=== PATIENT | male | born 1985 | race Caucasian/White ===

== ENCOUNTER → 2022-01-17 | Day surgery (SDC) | payer OTHER ==
[2022-01-17 12:33] VITALS: BP 119/73
== END | disposition home or self-care (01) ==
LOC: SURG 12:26
PROVIDERS: ATTEND Anesthesiology
DX: M47.816 Spondylosis without myelopathy or radiculopathy, lumbar region (principal); M51.36 Other intervertebral disc degeneration, lumbar region; Z88.5 Allergy status to narcotic agent
CPT/HCPCS: 99204; G0463